=== PATIENT | male | born 1990 | race Caucasian/White ===

== ENCOUNTER 2016-11-27 20:02 | Emergency (ER) | payer OTHER ==
[2016-11-27] MEDS ORDERED: KETOROLAC 30 MG/ML VIAL (J1885) As Ordered ONE (20:46)
[2016-11-27] MEDS ORDERED: ONDANSETRON 4MG/2ML VIAL (J2405) As Ordered ONE (20:46)
[2016-11-27 20:59] LABS: BASO % 0.1 % (0.0-1.0); EOS # 0.2 K/mm3 (0.0-0.50); EOS % 1.9 % (0.0-3.0); LARGE UNSTAINED CELL # 0.1 K/mm3 (0.0-0.4); LARGE UNSTAINED CELL % 0.6 % (0.0-4.0); LYMPH # 0.6 K/mm3 (1.5-6.5); LYMPH % 4.6 % (24.0-44.0); MEAN CORPUSCULAR HEMOGLOBIN 31.4 pg (27.0-33.0); MEAN CORPUSCULAR HGB CONC 34.3 g/dl (32.0-36.5); MEAN CORPUSCULAR VOLUME 91.6 fl (80.0-96.0); MONO # 0.4 K/mm3 (0.0-0.8); MONO % 3.6 % (0.0-5.0); NEUTROPHILS # 9.6 K/mm3 (1.8-7.7); NEUTROPHILS % 89.2 % (36.0-66.0); PLATELET COUNT, AUTOMATED 208 k/mm3 (150-450); RED CELL DISTRIBUTION WIDTH 12.5 % (11.5-14.5); WHITE BLOOD COUNT 10.8 K/mm3 (4.0-10.0)
[2016-11-27 21:25] LABS: ALBUMIN 4.7 GM/DL (3.2-5.2); ALBUMIN/GLOBULIN RATIO 1.27 (1.00-1.93); ALKALINE PHOSPHATASE 81 U/L (45-117); ALT/SGPT 29 U/L (12-78); ANION GAP 9 MEQ/L (8-16); AST/SGOT 29 U/L (15-37); BILIRUBIN,DIRECT 0.2 MG/DL (0.0-0.2); BILIRUBIN,TOTAL 5.5 MG/DL (0.2-1.0); BLOOD UREA NITROGEN 19 MG/DL (7-18); CALCIUM LEVEL 9.3 MG/DL (8.5-10.1); CARBON DIOXIDE LEVEL 28 MEQ/L (21-32); CHLORIDE LEVEL 104 MEQ/L (98-107); CREATININE FOR GFR 1.22 MG/DL (0.70-1.30); GLOMERULAR FILTRATION RATE > 60.0 (>60); GLUCOSE, FASTING 119 MG/DL (70-105); POTASSIUM SERUM 3.9 MEQ/L (3.5-5.1); SODIUM LEVEL 141 MEQ/L (136-145); TOTAL PROTEIN 8.4 GM/DL (6.4-8.2)
--- NOTE | 2016-11-27 22:00 | EDDOCDS ---
Physician Documentation [facility] Name: Jed Bernardo Age: 26 yrs Sex: Male : 1990 Arrival Date: 11/27/2016 Time: 20:02 Bed I4 / M4 Private [facility] Disposition: 11/27/16 21:42 Discharged to Home/Self Care. Impression: Diarrhea, unspecified, Vomiting. - Condition is Stable. - Discharge Instructions: Food Choices to Help Relieve Diarrhea, Adult, Nausea and Vomiting. - Prescriptions for ZOFRAN ODT 4 mg Oral - dissolve 1 tablet by ORAL route 4 times per day As needed do not chew, do not swallow whole; 15 tablet. - Medication Reconciliation, Local Pharmacy Hours form. - [facility]; When: Call to arrange an appointment; Reason: Recheck today's complaints, Continuance of care. - Problem is new. - Symptoms have improved. Historical: - Allergies: SULFA (SULFONAMIDES) (Rash); - Home Meds: 1. multivitamin Oral cap 1 tablet daily - PMHx: none; - PSHx: ortho surgery; - Social history: Smoking status: Patient states was never smoker of tobacco. No barriers to communication noted, Speaks appropriately for age. - Family history: Not pertinent. - : The pt / caregiver states he / she is not on anticoagulants. Home medication list is obtained from the patient. - Exposure Risk Screening:: None identified. Vital Signs: 11/27 20:04 BP 135 / 76 RA Sitting (auto/lg); Pulse 98; Resp 18; Temp 99.0(T); Pulse Ox 100% on bnb R/A; Weight 79.38 kg / 175 lbs; Height 6 ft. (182.88 cm); Pain 1/10; 21:54 BP 126 / 69; Pulse 71; Resp 18; Temp 100.9(TE); Pulse Ox 99% on R/A; Pain 0/10; ar3 20:04 Body Mass Index 23.73 (79.38 kg, 182.88 cm) bnb MDM: 20:39 NS 0.9% 1000 ml IV at bolus once ordered. mo1 20:39 Ondansetron 4 mg IVP once ordered. mo1 20:39 ketorolac 30 mg IVP once ordered. mo1 20:39 Undress patient appropriately for examination ordered. mo1 20:40 Basic Metabolic Profile Ordered. EDMS 20:40 CBC with Diff Ordered. EDMS 20:40 Lipase Ordered. EDMS 20:40 Liver Profile Ordered. EDMS 20:40 Urinalysis Ordered. EDMS 20:41 NOTHING BY MOUTH+DIET ordered. EDMS 21:21 [facility] Payment Agreement was scanned into [employer] and attached to record. jp5 21:21 Financial registration complete. jp5 21:25 CBC with Diff Reviewed. mo1 21:25 Urinalysis Reviewed. mo1 21:26 Liver Profile Reviewed. mo1 21:27 Basic Metabolic Profile Reviewed. mo1 21:27 Lipase Reviewed. mo1 Administered Medications: 20:56 Drug: NS 0.9% 1000 ml [sodium chloride 0.9 % intravenous solution] Route: IV; Rate: jmb bolus; Site: left antecubital; 20:56 Drug: Ondansetron 4 mg [ondansetron HCl 2 mg/mL intravenous solution (2 mL)] Route: jmb IVP; Site: left antecubital; 20:56 Drug: ketorolac 30 mg [ketorolac 30 mg/mL (1 mL) injection solution (1 mL)] Route: IVP; jmb Site: left antecubital; Signatures: [facility] ED[facility] Cam RN RN rs3 Arian Ritter PA PA mo1 Jason Godinez RN RN jmb Jin Rocha jp5 The chart was reviewed and I authenticate all verbal orders and agree with the evaluation and treatment provided.Attachments: 21:21 [facility] Payment Agreement jp5 MTDD
--- NOTE | 2016-11-27 22:00 | EDDOCDS ---
Nurse's Notes [facility] Name: Jed Bernardo Age: 26 yrs Sex: Male : 1990 Arrival Date: 11/27/2016 Time: 20:02 Bed I4 / M4 Private MD: ZEESHAN ABDULLAHI Diagnosis: Diarrhea, unspecified;Vomiting Presentation: 11/27 20:07 Acuity: RYAN Level 3 rs3 20:10 Presenting complaint: Patient states: nausea, vomiting, diarrhea after eating out last rs3 night. Adult Sepsis Screening: The patient does not have new or worsening altered mentation. Patient's respiratory rate is less than 22. Systolic blood pressure is greater than 100. Patient has a qSOFA score of 0- Negative Sepsis Screen. Suicide/Homicide risk assessment- the patient denies having any suicidal and/or homicidal ideations and does not present with any other emotional, behavioral or mental health complaints. Status: Patient is not a vehicle service attendant or dependent. Transition of care: patient was not received from another setting of care. 20:10 Method Of Arrival: Walkin/Carried/Asstd rs3 Triage Assessment: 20:13 General: Appears in no apparent distress. Pain: Denies pain. Pt Declines HIV testing. rs3 Historical: - Allergies: SULFA (SULFONAMIDES) (Rash); - Home Meds: 1. multivitamin Oral cap 1 tablet daily - PMHx: none; - PSHx: ortho surgery; - Social history: Smoking status: Patient states was never smoker of tobacco. No barriers to communication noted, Speaks appropriately for age. - Family history: Not pertinent. - : The pt / caregiver states he / she is not on anticoagulants. Home medication list is obtained from the patient. - Exposure Risk Screening:: None identified. Screenin:57 Screening information is obtained from the patient. Fall risk: No risks identified. jmb Assistance ADL's: requires no assistance with activities of daily living. Abuse/DV Screen: The patient / caregiver reports he/she is: not in a situation that causes fear, pain or injury. Nutritional screening: No deficits noted. home support is adequate. 21:58 Advance Directives: Currently, there is no health care proxy. There is no active DNR jmb order. There is no living will. There is no Power of Tool Engineer. Assessment: 20:57 General: Appears in no apparent distress, Behavior is appropriate for age, cooperative. b Pain: Location: abdomen Pain currently is 1 out of 10 on a pain scale. Neurological: Level of Consciousness is awake, alert, obeys commands, Oriented to person, place, time, Sign Maintenance are equal bilaterally Speech is normal, Facial symmetry appears normal, Facial symmetry: tongue is midline. Cardiovascular: Capillary refill < 3 seconds Heart tones S1 S2 present Pulses are all present. Rhythm is regular. Respiratory: Airway is patent Respiratory effort is even, unlabored, Respiratory pattern is regular, symmetrical, Breath sounds are clear bilaterally. GI: Abdomen is non- distended Bowel sounds present X 4 quads. Abd is soft and non tender X 4 quads. Derm: Skin is pink, warm & dry. Musculoskeletal: Range of motion intact in all extremities. 21:41 General: Appears in no apparent distress, comfortable, Behavior is appropriate for age, jmb cooperative. Neurological: Level of Consciousness is awake, alert, obeys commands, Oriented to person, place, time. Respiratory: Airway is patent Respiratory effort is even, unlabored, Respiratory pattern is regular, symmetrical. 21:58 General: Patient instructed on discharge instructions. Patient asked if there were any b questions regarding discharge, patient stated no. IV discontinued per hospital policy. Patient signed discharge instructions. Patient discharged in stable condition. . Vital Signs: 20:04 BP 135 / 76 RA Sitting (auto/lg); Pulse 98; Resp 18; Temp 99.0(T); Pulse Ox 100% on b R/A; Weight 79.38 kg; Height 6 ft. (182.88 cm); Pain 1/10; 21:54 BP 126 / 69; Pulse 71; Resp 18; Temp 100.9(TE); Pulse Ox 99% on R/A; Pain 0/10; ar3 20:04 Body Mass Index 23.73 (79.38 kg, 182.88 cm) [facility] Vitals: 20:04 Log In Time: November 27, 2016 at 20:02. [facility] ED Course: 20:03 Patient visited by Mansi Godinez PCA. bnb 20:03 Patient moved to Waiting bnb 20:04 [facility] is Private Physician. bnb 20:06 Patient moved to Pre RCE bnb 20:08 Triage Initiated rs3 20:14 Patient moved to Triage 3 ttb 20:15 Patient moved to Pre RCE kc3 20:22 Patient moved to Triage 1 ar3 20:24 Arian Ritter PA is PHCP. mo1 20:24 Jatinder Barron DO is Attending Physician. mo1 20:36 Patient visited by Arian Ritter PA. mo1 20:43 Patient moved to I4 / M4 ttb 20:56 Basic Metabolic Profile Sent. jmb 20:56 CBC with Diff Sent. jmb 20:56 Lipase Sent. jmb 20:56 Liver Profile Sent. jmb 20:57 The patient / caregiver is instructed regarding the plan of care and ED course. jmb 20:57 Inserted saline lock: 20 gauge in left antecubital area and blood collected. The jmb patient tolerated the procedure well. Labs drawn. (by ED staff). Sent per order to lab. 20:58 Patient visited by Jason Godinez RN. jmb 21:21 [facility] Payment Agreement was scanned into [employer] and attached to record. jp5 21:41 Patient visited by Jason Godinez RN. jmb 21:42 [facility] is Referral Physician. mo1 21:54 Patient visited by Olga Houser PCA. ar3 21:58 Discontinued lock intact, bleeding controlled. No procedures done that require jmb assistance. Administered Medications: 20:56 Drug: NS 0.9% 1000 ml [sodium chloride 0.9 % intravenous solution] Route: IV; Rate: jmb bolus; Site: left antecubital; 20:56 Drug: Ondansetron 4 mg [ondansetron HCl 2 mg/mL intravenous solution (2 mL)] Route: jmb IVP; Site: left antecubital; 20:56 Drug: ketorolac 30 mg [ketorolac 30 mg/mL (1 mL) injection solution (1 mL)] Route: IVP; jmb Site: left antecubital; Order Results: Lab Order: Basic Metabolic Profile; SPEC'M 11/27/16 20:53 Test: GLUCOSE, FASTING; Value: 119; Range: 70-105; Abnormal: Above high normal; Units: MG/DL; Status: F Test: BLOOD UREA NITROGEN; Value: 19; Range: 7-18; Abnormal: Above high normal; Units: MG/DL; Status: F Test: CREATININE FOR GFR; Value: 1.22; Range: 0.70-1.30; Units: MG/DL; Status: F Test: GLOMERULAR FILTRATION RATE; Value: > 60.0; Range: >60; Status: F Test: SODIUM LEVEL; Value: 141; Range: 136-145; Units: MEQ/L; Status: F Test: POTASSIUM SERUM; Value: 3.9; Range: 3.5-5.1; Units: MEQ/L; Status: F Test: CHLORIDE LEVEL; Value: 104; Range: 98-107; Units: MEQ/L; Status: F Test: CARBON DIOXIDE LEVEL; Value: 28; Range: 21-32; Units: MEQ/L; Status: F Test: ANION GAP; Value: 9; Range: 8-16; Units: MEQ/L; Status: F Test: CALCIUM LEVEL; Value: 9.3; Range: 8.5-10.1; Units: MG/DL; Status: F Test Note: ; Units are mL/min/1.73 m2 Chronic Kidney Disease Staging per NKF: Stage I & II GFR >=60 Normal to Mildly Decreased Stage III GFR 30-59 Moderately Decreased Stage IV GFR 15-29 Severely Decreased Stage V GFR <15 Very Little GFR Left ESRD GFR <15 on BEHAVIORAL HEALTH CASE MANAGER Lab Order: CBC with Diff; SPEC'M 11/27/16 20:53 Test: WHITE BLOOD COUNT; Value: 10.8; Range: 4.0-10.0; Abnormal: Above high normal; Units: K/mm3; Status: F Test: RED BLOOD COUNT; Value: 5.47; Range: 4.30-6.10; Units: M/mm3; Status: F Test: HEMOGLOBIN; Value: 17.2; Range: 14.0-18.0; Units: g/dl; Status: F Test: HEMATOCRIT; Value: 50.1; Range: 42.0-52.0; Units: %; Status: F Test: MEAN CORPUSCULAR VOLUME; Value: 91.6; Range: 80.0-96.0; Units: fl; Status: F Test: MEAN CORPUSCULAR HEMOGLOBIN; Value: 31.4; Range: 27.0-33.0; Units: pg; Status: F Test: MEAN CORPUSCULAR HGB CONC; Value: 34.3; Range: 32.0-36.5; Units: g/dl; Status: F Test: RED CELL DISTRIBUTION WIDTH; Value: 12.5; Range: 11.5-14.5; Units: %; Status: F Test: PLATELET COUNT, AUTOMATED; Value: 208; Range: 150-450; Units: k/mm3; Status: F Test: NEUTROPHILS %; Value: 89.2; Range: 36.0-66.0; Abnormal: Above high normal; Units: %; Status: F Test: LYMPH %; Value: 4.6; Range: 24.0-44.0; Abnormal: Below low normal; Units: %; Status: F Test: MONO %; Value: 3.6; Range: 0.0-5.0; Units: %; Status: F Test: EOS %; Value: 1.9; Range: 0.0-3.0; Units: %; Status: F Test: BASO %; Value: 0.1; Range: 0.0-1.0; Units: %; Status: F Test: LARGE UNSTAINED CELL %; Value: 0.6; Range: 0.0-4.0; Units: %; Status: F Test: NEUTROPHILS #; Value: 9.6; Range: 1.8-7.7; Abnormal: Above high normal; Units: K/mm3; Status: F Test: LYMPH #; Value: 0.6; Range: 1.5-6.5; Abnormal: Below low normal; Units: K/mm3; Status: F Test: MONO #; Value: 0.4; Range: 0.0-0.8; Units: K/mm3; Status: F Test: EOS #; Value: 0.2; Range: 0.0-0.50; Units: K/mm3; Status: F Test: BASO #; Value: 0.0; Range: 0.0-0.2; Units: K/mm3; Status: F Test: LARGE UNSTAINED CELL #; Value: 0.1; Range: 0.0-0.4; Units: K/mm3; Status: F Lab Order: Lipase; SPEC'M 11/27/16 20:53 Test: LIPASE; Value: 73; Range: 73-393; Units: U/L; Status: F Lab Order: Liver Profile; SPEC'M 11/27/16 20:53 Test: AST/SGOT; Value: 29; Range: 15-37; Units: U/L; Status: F Test: ALT/SGPT; Value: 29; Range: 12-78; Units: U/L; Status: F Test: ALKALINE PHOSPHATASE; Value: 81; Range: 45-117; Units: U/L; Status: F Test: BILIRUBIN,TOTAL; Value: 5.5; Range: 0.2-1.0; Abnormal: Above high normal; Units: MG/DL; Status: F Test: BILIRUBIN,DIRECT; Value: 0.2; Range: 0.0-0.2; Units: MG/DL; Status: F Test: TOTAL PROTEIN; Value: 8.4; Range: 6.4-8.2; Abnormal: Above high normal; Units: GM/DL; Status: F Test: ALBUMIN; Value: 4.7; Range: 3.2-5.2; Units: GM/DL; Status: F Test: ALBUMIN/GLOBULIN RATIO; Value: 1.27; Range: 1.00-1.93; Status: F Lab Order: Urinalysis; [facility]'M 11/27/16 20:45 Test: APPEARANCE, URINE; Value: HAZY; Range: CLEAR; Status: F Test: COLOR, URINE; Value: YELLOW; Range: YELLOW; Status: F Test: PH,URINE; Value: 5.0; Range: 5.0-9.0; Units: UNITS; Status: F Test: SPECIFIC GRAVITY URINE AUTO; Value: 1.033; Range: 1.002-1.035; Status: F Test: PROTEIN, URINE AUTO; Value: 2+; Range: NEGATIVE; Abnormal: Above high normal; Units: mg/dL; Status: F Test: GLUCOSE, URINE (UA) AUTO; Value: NEGATIVE; Range: NEGATIVE; Units: mg/dL; Status: F Test: KETONE, URINE AUTO; Value: TRACE; Range: NEGATIVE; Abnormal: Above high normal; Units: mg/dL; Status: F Test: UROBILINOGEN, URINE AUTO; Value: 0.2; Range: 0.0-2.0; Units: mg/dL; Status: F Test: BILIRUBIN, URINE AUTO; Value: NEGATIVE; Range: NEGATIVE; Status: F Test: NITRITE, URINE AUTO; Value: NEGATIVE; Range: NEGATIVE; Status: F Test: LEUKOCYTE ESTERASE, URINE AUTO; Value: NEGATIVE; Range: NEGATIVE; Status: F Test: BLOOD, URINE BLOOD; Value: NEGATIVE; Range: NEGATIVE; Status: F Test: WBC, URINE AUTO; Value: 1; Range: 0-3; Units: /HPF; Status: F Test: RBC, URINE AUTO; Value: 2; Range: 0-3; Units: /HPF; Status: F Test: BACTERIA, URINE AUTO; Value: NEGATIVE; Range: NEGATIVE; Status: F Test: SQUAMOUS EPITHELIAL CELL UR AU; Value: 0; Range: 0-6; Units: /HPF; Status: F Test: MUCUS, URINE; Value: LARGE; Range: NEGATIVE; Status: F Test: HYALINE CAST, URINE AUTO; Value: 0; Range: 0-1; Units: /LPF; Status: F Outcome: 21:42 Discharge ordered by Provider. mo1 21:58 Discharge Assessment: Patient awake, alert and oriented x 3. No cognitive and/or jmb functional deficits noted. Patient verbalized understanding of disposition instructions. Patient awake and alert. obeys commands, Oriented to person, place and time. Patient verbalized understanding of disposition instructions. Patient has no functional deficits. patient administered narcotics - no. The following High Risk Discharge criteria are identified: None. Discharged to home ambulatory, with friend. Condition: stable Condition: improved. Discharge instructions given to patient, Instructed on discharge instructions, follow up and referral plans. medication usage, Demonstrated understanding of instructions, medications, Pt was receptive of discharge instructions/ teaching. Prescriptions given X 1. No special radiology studies were completed. Property sent home with patient. 22:00 Patient left the ED. b Signatures: Neena Dunn,RN RN rs3 Olga Houser, REGISTRATION REPRESENTATIVE REGISTRATION REPRESENTATIVE ar3 Kriss Thomas RN RN tiagob Arian Ritter PA PA mo1 Jason Godinez RN RN Jin Tomlinson jp5 Tiffany Hector RN RN kc3 Mansi Godinez, REGISTRATION REPRESENTATIVE REGISTRATION REPRESENTATIVE bnb Corrections: (The following items were deleted from the chart) 20:12 20:07 Presenting complaint: Patient states: L leg cramping on and off since Monday. rs3 Denies of swelling/redness. rs3 20:42 20:07 Acuity: RYAN Level 4 rs3 rs3 MTDD
--- NOTE | 2016-11-29 23:00 | EDDOCDS ---
Physician Documentation [facility] Name: Jed Bernardo Age: 26 yrs Sex: Male : 1990 Arrival Date: 11/27/2016 Time: 20:02 Bed I4 / M4 Private [facility] Disposition: 11/27/16 21:42 Discharged to Home/Self Care. Impression: Diarrhea, unspecified, Vomiting. - Condition is Stable. - Discharge Instructions: Food Choices to Help Relieve Diarrhea, Adult, Nausea and Vomiting. - Prescriptions for ZOFRAN ODT 4 mg Oral - dissolve 1 tablet by ORAL route 4 times per day As needed do not chew, do not swallow whole; 15 tablet. - Medication Reconciliation, Local Pharmacy Hours form. - [facility]; When: Call to arrange an appointment; Reason: Recheck today's complaints, Continuance of care. - Problem is new. - Symptoms have improved. Historical: - Allergies: SULFA (SULFONAMIDES) (Rash); - Home Meds: 1. multivitamin Oral cap 1 tablet daily - PMHx: none; - PSHx: ortho surgery; - Social history: Smoking status: Patient states was never smoker of tobacco. No barriers to communication noted, Speaks appropriately for age. - Family history: Not pertinent. - : The pt / caregiver states he / she is not on anticoagulants. Home medication list is obtained from the patient. - Exposure Risk Screening:: None identified. Vital Signs: 11/27 20:04 BP 135 / 76 RA Sitting (auto/lg); Pulse 98; Resp 18; Temp 99.0(T); Pulse Ox 100% on bnb R/A; Weight 79.38 kg / 175 lbs; Height 6 ft. (182.88 cm); Pain 1/10; 21:54 BP 126 / 69; Pulse 71; Resp 18; Temp 100.9(TE); Pulse Ox 99% on R/A; Pain 0/10; ar3 20:04 Body Mass Index 23.73 (79.38 kg, 182.88 cm) bnb MDM: 20:39 NS 0.9% 1000 ml IV at bolus once ordered. mo1 20:39 Ondansetron 4 mg IVP once ordered. mo1 20:39 ketorolac 30 mg IVP once ordered. mo1 20:39 Undress patient appropriately for examination ordered. mo1 20:40 Basic Metabolic Profile Ordered. EDMS 20:40 CBC with Diff Ordered. EDMS 20:40 Lipase Ordered. EDMS 20:40 Liver Profile Ordered. EDMS 20:40 Urinalysis Ordered. EDMS 20:41 NOTHING BY MOUTH+DIET ordered. EDMS 21:21 [facility] Payment Agreement was scanned into [employer] and attached to record. jp5 21:21 Financial registration complete. jp5 21:25 CBC with Diff Reviewed. mo1 21:25 Urinalysis Reviewed. mo1 21:26 Liver Profile Reviewed. mo1 21:27 Basic Metabolic Profile Reviewed. mo1 21:27 Lipase Reviewed. mo1 11/28 11:43 T-Sheet-- Draft Copy was scanned into [employer] and attached to record. gb Administered Medications: 11/27 20:56 Drug: NS 0.9% 1000 ml [sodium chloride 0.9 % intravenous solution] Route: IV; Rate: jmb bolus; Site: left antecubital; 20:56 Drug: Ondansetron 4 mg [ondansetron HCl 2 mg/mL intravenous solution (2 mL)] Route: jmb IVP; Site: left antecubital; 20:56 Drug: ketorolac 30 mg [ketorolac 30 mg/mL (1 mL) injection solution (1 mL)] Route: IVP; jmb Site: left antecubital; Signatures: Dispatcher [employer] EDMS Gladis Yen, Reg Reg Neena Ovalles RN RN rs3 Arian Ritter PA PA mo1 Jason Godinez RN RN jmb Price, Jennalee jp5 The chart was reviewed and I authenticate all verbal orders and agree with the evaluation and treatment provided.Attachments: 21:21 PENDING SALE TO [facility] Payment Agreement jp5 11/28 11:43 T-Sheet-- Draft Copy gb Chart Complete MTDD
--- NOTE | 2016-11-29 23:00 | EDDOCDS ---
Nurse's Notes [facility] Name: Jed Bernardo Age: 26 yrs Sex: Male : 1990 Arrival Date: 11/27/2016 Time: 20:02 Bed I4 / M4 Private MD: ZEESHAN ABDULLAHI Diagnosis: Diarrhea, unspecified;Vomiting Presentation: 11/27 20:07 Acuity: RYAN Level 3 rs3 20:10 Presenting complaint: Patient states: nausea, vomiting, diarrhea after eating out last rs3 night. Adult Sepsis Screening: The patient does not have new or worsening altered mentation. Patient's respiratory rate is less than 22. Systolic blood pressure is greater than 100. Patient has a qSOFA score of 0- Negative Sepsis Screen. Suicide/Homicide risk assessment- the patient denies having any suicidal and/or homicidal ideations and does not present with any other emotional, behavioral or mental health complaints. Status: Patient is not a telegraphic service dispatcher or dependent. Transition of care: patient was not received from another setting of care. 20:10 Method Of Arrival: Walkin/Carried/Asstd rs3 Triage Assessment: 20:13 General: Appears in no apparent distress. Pain: Denies pain. Pt Declines HIV testing. rs3 Historical: - Allergies: SULFA (SULFONAMIDES) (Rash); - Home Meds: 1. multivitamin Oral cap 1 tablet daily - PMHx: none; - PSHx: ortho surgery; - Social history: Smoking status: Patient states was never smoker of tobacco. No barriers to communication noted, Speaks appropriately for age. - Family history: Not pertinent. - : The pt / caregiver states he / she is not on anticoagulants. Home medication list is obtained from the patient. - Exposure Risk Screening:: None identified. Screenin:57 Screening information is obtained from the patient. Fall risk: No risks identified. jmb Assistance ADL's: requires no assistance with activities of daily living. Abuse/DV Screen: The patient / caregiver reports he/she is: not in a situation that causes fear, pain or injury. Nutritional screening: No deficits noted. home support is adequate. 21:58 Advance Directives: Currently, there is no health care proxy. There is no active DNR jmb order. There is no living will. There is no Power of Outbound Sales Agent. Assessment: 20:57 General: Appears in no apparent distress, Behavior is appropriate for age, cooperative. b Pain: Location: abdomen Pain currently is 1 out of 10 on a pain scale. Neurological: Level of Consciousness is awake, alert, obeys commands, Oriented to person, place, time, Lane Attendant are equal bilaterally Speech is normal, Facial symmetry appears normal, Facial symmetry: tongue is midline. Cardiovascular: Capillary refill < 3 seconds Heart tones S1 S2 present Pulses are all present. Rhythm is regular. Respiratory: Airway is patent Respiratory effort is even, unlabored, Respiratory pattern is regular, symmetrical, Breath sounds are clear bilaterally. GI: Abdomen is non- distended Bowel sounds present X 4 quads. Abd is soft and non tender X 4 quads. Derm: Skin is pink, warm & dry. Musculoskeletal: Range of motion intact in all extremities. 21:41 General: Appears in no apparent distress, comfortable, Behavior is appropriate for age, jmb cooperative. Neurological: Level of Consciousness is awake, alert, obeys commands, Oriented to person, place, time. Respiratory: Airway is patent Respiratory effort is even, unlabored, Respiratory pattern is regular, symmetrical. 21:58 General: Patient instructed on discharge instructions. Patient asked if there were any b questions regarding discharge, patient stated no. IV discontinued per hospital policy. Patient signed discharge instructions. Patient discharged in stable condition. . Vital Signs: 20:04 BP 135 / 76 RA Sitting (auto/lg); Pulse 98; Resp 18; Temp 99.0(T); Pulse Ox 100% on b R/A; Weight 79.38 kg; Height 6 ft. (182.88 cm); Pain 1/10; 21:54 BP 126 / 69; Pulse 71; Resp 18; Temp 100.9(TE); Pulse Ox 99% on R/A; Pain 0/10; ar3 20:04 Body Mass Index 23.73 (79.38 kg, 182.88 cm) [facility] Vitals: 20:04 Log In Time: November 27, 2016 at 20:02. [facility] ED Course: 20:03 Patient visited by Mansi Godinez PCA. bnb 20:03 Patient moved to Waiting bnb 20:04 [facility] is Private Physician. bnb 20:06 Patient moved to Pre RCE bnb 20:08 Triage Initiated rs3 20:14 Patient moved to Triage 3 ttb 20:15 Patient moved to Pre RCE kc3 20:22 Patient moved to Triage 1 ar3 20:24 Arian Ritter PA is PHCP. mo1 20:24 Jatinder Barron DO is Attending Physician. mo1 20:36 Patient visited by Arian Ritter PA. mo1 20:43 Patient moved to I4 / M4 ttb 20:56 Basic Metabolic Profile Sent. jmb 20:56 CBC with Diff Sent. jmb 20:56 Lipase Sent. jmb 20:56 Liver Profile Sent. jmb 20:57 The patient / caregiver is instructed regarding the plan of care and ED course. jmb 20:57 Inserted saline lock: 20 gauge in left antecubital area and blood collected. The jmb patient tolerated the procedure well. Labs drawn. (by ED staff). Sent per order to lab. 20:58 Patient visited by Jason Godinez RN. jmb 21:21 [facility] [place] Payment Agreement was scanned into [employer] and attached to record. jp5 21:41 Patient visited by Jason Godinze RN. jmb 21:42 [facility] is Referral Physician. mo1 21:54 Patient visited by Olga Houser PCA. ar3 21:58 Discontinued lock intact, bleeding controlled. No procedures done that require jmb assistance. 23:24 Patient name changed from Jed\S\\S\Az\S\ to Jed\S\Jeffrey\S\Az. EDMS 11/28 11:43 T-Sheet-- Draft Copy was scanned into [employer] and attached to record. gb Administered Medications: 11/27 20:56 Drug: NS 0.9% 1000 ml [sodium chloride 0.9 % intravenous solution] Route: IV; Rate: jmb bolus; Site: left antecubital; 20:56 Drug: Ondansetron 4 mg [ondansetron HCl 2 mg/mL intravenous solution (2 mL)] Route: jmb IVP; Site: left antecubital; 20:56 Drug: ketorolac 30 mg [ketorolac 30 mg/mL (1 mL) injection solution (1 mL)] Route: IVP; jmb Site: left antecubital; Order Results: Lab Order: Basic Metabolic Profile; SPEC'M 11/27/16 20:53 Test: GLUCOSE, FASTING; Value: 119; Range: 70-105; Abnormal: Above high normal; Units: MG/DL; Status: F Test: BLOOD UREA NITROGEN; Value: 19; Range: 7-18; Abnormal: Above high normal; Units: MG/DL; Status: F Test: CREATININE FOR GFR; Value: 1.22; Range: 0.70-1.30; Units: MG/DL; Status: F Test: GLOMERULAR FILTRATION RATE; Value: > 60.0; Range: >60; Status: F Test: SODIUM LEVEL; Value: 141; Range: 136-145; Units: MEQ/L; Status: F Test: POTASSIUM SERUM; Value: 3.9; Range: 3.5-5.1; Units: MEQ/L; Status: F Test: CHLORIDE LEVEL; Value: 104; Range: 98-107; Units: MEQ/L; Status: F Test: CARBON DIOXIDE LEVEL; Value: 28; Range: 21-32; Units: MEQ/L; Status: F Test: ANION GAP; Value: 9; Range: 8-16; Units: MEQ/L; Status: F Test: CALCIUM LEVEL; Value: 9.3; Range: 8.5-10.1; Units: MG/DL; Status: F Test Note: ; Units are mL/min/1.73 m2 Chronic Kidney Disease Staging per NKF: Stage I & II GFR >=60 Normal to Mildly Decreased Stage III GFR 30-59 Moderately Decreased Stage IV GFR 15-29 Severely Decreased Stage V GFR <15 Very Little GFR Left ESRD GFR <15 on SALESPERSON TERRAZZO TILES Lab Order: CBC with Diff; SPEC11/27/16 20:53 Test: WHITE BLOOD COUNT; Value: 10.8; Range: 4.0-10.0; Abnormal: Above high normal; Units: K/mm3; Status: F Test: RED BLOOD COUNT; Value: 5.47; Range: 4.30-6.10; Units: M/mm3; Status: F Test: HEMOGLOBIN; Value: 17.2; Range: 14.0-18.0; Units: g/dl; Status: F Test: HEMATOCRIT; Value: 50.1; Range: 42.0-52.0; Units: %; Status: F Test: MEAN CORPUSCULAR VOLUME; Value: 91.6; Range: 80.0-96.0; Units: fl; Status: F Test: MEAN CORPUSCULAR HEMOGLOBIN; Value: 31.4; Range: 27.0-33.0; Units: pg; Status: F Test: MEAN CORPUSCULAR HGB CONC; Value: 34.3; Range: 32.0-36.5; Units: g/dl; Status: F Test: RED CELL DISTRIBUTION WIDTH; Value: 12.5; Range: 11.5-14.5; Units: %; Status: F Test: PLATELET COUNT, AUTOMATED; Value: 208; Range: 150-450; Units: k/mm3; Status: F Test: NEUTROPHILS %; Value: 89.2; Range: 36.0-66.0; Abnormal: Above high normal; Units: %; Status: F Test: LYMPH %; Value: 4.6; Range: 24.0-44.0; Abnormal: Below low normal; Units: %; Status: F Test: MONO %; Value: 3.6; Range: 0.0-5.0; Units: %; Status: F Test: EOS %; Value: 1.9; Range: 0.0-3.0; Units: %; Status: F Test: BASO %; Value: 0.1; Range: 0.0-1.0; Units: %; Status: F Test: LARGE UNSTAINED CELL %; Value: 0.6; Range: 0.0-4.0; Units: %; Status: F Test: NEUTROPHILS #; Value: 9.6; Range: 1.8-7.7; Abnormal: Above high normal; Units: K/mm3; Status: F Test: LYMPH #; Value: 0.6; Range: 1.5-6.5; Abnormal: Below low normal; Units: K/mm3; Status: F Test: MONO #; Value: 0.4; Range: 0.0-0.8; Units: K/mm3; Status: F Test: EOS #; Value: 0.2; Range: 0.0-0.50; Units: K/mm3; Status: F Test: BASO #; Value: 0.0; Range: 0.0-0.2; Units: K/mm3; Status: F Test: LARGE UNSTAINED CELL #; Value: 0.1; Range: 0.0-0.4; Units: K/mm3; Status: F Lab Order: Lipase; [facility] 11/27/16 20:53 Test: LIPASE; Value: 73; Range: 73-393; Units: U/L; Status: F Lab Order: Liver Profile; [facility] 11/27/16 20:53 Test: AST/SGOT; Value: 29; Range: 15-37; Units: U/L; Status: F Test: ALT/SGPT; Value: 29; Range: 12-78; Units: U/L; Status: F Test: ALKALINE PHOSPHATASE; Value: 81; Range: 45-117; Units: U/L; Status: F Test: BILIRUBIN,TOTAL; Value: 5.5; Range: 0.2-1.0; Abnormal: Above high normal; Units: MG/DL; Status: F Test: BILIRUBIN,DIRECT; Value: 0.2; Range: 0.0-0.2; Units: MG/DL; Status: F Test: TOTAL PROTEIN; Value: 8.4; Range: 6.4-8.2; Abnormal: Above high normal; Units: GM/DL; Status: F Test: ALBUMIN; Value: 4.7; Range: 3.2-5.2; Units: GM/DL; Status: F Test: ALBUMIN/GLOBULIN RATIO; Value: 1.27; Range: 1.00-1.93; Status: F Lab Order: Urinalysis; [facility] 11/27/16 20:45 Test: APPEARANCE, URINE; Value: HAZY; Range: CLEAR; Status: F Test: COLOR, URINE; Value: YELLOW; Range: YELLOW; Status: F Test: PH,URINE; Value: 5.0; Range: 5.0-9.0; Units: UNITS; Status: F Test: SPECIFIC GRAVITY URINE AUTO; Value: 1.033; Range: 1.002-1.035; Status: F Test: PROTEIN, URINE AUTO; Value: 2+; Range: NEGATIVE; Abnormal: Above high normal; Units: mg/dL; Status: F Test: GLUCOSE, URINE (UA) AUTO; Value: NEGATIVE; Range: NEGATIVE; Units: mg/dL; Status: F Test: KETONE, URINE AUTO; Value: TRACE; Range: NEGATIVE; Abnormal: Above high normal; Units: mg/dL; Status: F Test: UROBILINOGEN, URINE AUTO; Value: 0.2; Range: 0.0-2.0; Units: mg/dL; Status: F Test: BILIRUBIN, URINE AUTO; Value: NEGATIVE; Range: NEGATIVE; Status: F Test: NITRITE, URINE AUTO; Value: NEGATIVE; Range: NEGATIVE; Status: F Test: LEUKOCYTE ESTERASE, URINE AUTO; Value: NEGATIVE; Range: NEGATIVE; Status: F Test: BLOOD, URINE BLOOD; Value: NEGATIVE; Range: NEGATIVE; Status: F Test: WBC, URINE AUTO; Value: 1; Range: 0-3; Units: /HPF; Status: F Test: RBC, URINE AUTO; Value: 2; Range: 0-3; Units: /HPF; Status: F Test: BACTERIA, URINE AUTO; Value: NEGATIVE; Range: NEGATIVE; Status: F Test: SQUAMOUS EPITHELIAL CELL UR AU; Value: 0; Range: 0-6; Units: /HPF; Status: F Test: MUCUS, URINE; Value: LARGE; Range: NEGATIVE; Status: F Test: HYALINE CAST, URINE AUTO; Value: 0; Range: 0-1; Units: /LPF; Status: F Outcome: 21:42 Discharge ordered by Provider. mo1 21:58 Discharge Assessment: Patient awake, alert and oriented x 3. No cognitive and/or jmb functional deficits noted. Patient verbalized understanding of disposition instructions. Patient awake and alert. obeys commands, Oriented to person, place and time. Patient verbalized understanding of disposition instructions. Patient has no functional deficits. patient administered narcotics - no. The following High Risk Discharge criteria are identified: None. Discharged to home ambulatory, with friend. Condition: stable Condition: improved. Discharge instructions given to patient, Instructed on discharge instructions, follow up and referral plans. medication usage, Demonstrated understanding of instructions, medications, Pt was receptive of discharge instructions/ teaching. Prescriptions given X 1. No special radiology studies were completed. Property sent home with patient. 22:00 Patient left the ED. jmb Signatures: Dispatcher [employer] EDMO Gladis Yen, Reg Reg Neena Ovalles RN RN rs3 Olga Houser, [employer]SEMBLER ar3 Kriss Thomas RN RN ttb Arian Ritter PA PA mo1 Jason Godinez,RN RN jerryb Jin Rocha jp5 Tiffany Hector,RN RN kc3 Mansi Godinez, [employer]SEMBLER bnb Corrections: (The following items were deleted from the chart) 20:12 20:07 Presenting complaint: Patient states: L leg cramping on and off since Monday. rs3 Denies of swelling/redness. rs3 20:42 20:07 Acuity: RYAN Level 4 rs3 rs3 Chart Complete MTDD
--- NOTE | 2016-11-29 23:00 | EDDOCDS ---
Physician Documentation [facility] Name: Jed Bernardo Age: 26 yrs Sex: Male : 1990 Arrival Date: 11/27/2016 Time: 20:02 Bed I4 / M4 [facility] Disposition: 11/27/16 21:42 Discharged to Home/Self Care. Impression: Diarrhea, unspecified, Vomiting. - Condition is Stable. - Discharge Instructions: Food Choices to Help Relieve Diarrhea, Adult, Nausea and Vomiting. - Prescriptions for ZOFRAN ODT 4 mg Oral - dissolve 1 tablet by ORAL route 4 times per day As needed do not chew, do not swallow whole; 15 tablet. - Medication Reconciliation, Local Pharmacy Hours form. - [facility]; When: Call to arrange an appointment; Reason: Recheck today's complaints, Continuance of care. - Problem is new. - Symptoms have improved. Historical: - Allergies: SULFA (SULFONAMIDES) (Rash); - Home Meds: 1. multivitamin Oral cap 1 tablet daily - PMHx: none; - PSHx: ortho surgery; - Social history: Smoking status: Patient states was never smoker of tobacco. No barriers to communication noted, Speaks appropriately for age. - Family history: Not pertinent. - : The pt / caregiver states he / she is not on anticoagulants. Home medication list is obtained from the patient. - Exposure Risk Screening:: None identified. Vital Signs: 11/27 20:04 BP 135 / 76 RA Sitting (auto/lg); Pulse 98; Resp 18; Temp 99.0(T); Pulse Ox 100% on bnb R/A; Weight 79.38 kg / 175 lbs; Height 6 ft. (182.88 cm); Pain 1/10; 21:54 BP 126 / 69; Pulse 71; Resp 18; Temp 100.9(TE); Pulse Ox 99% on R/A; Pain 0/10; ar3 20:04 Body Mass Index 23.73 (79.38 kg, 182.88 cm) bnb MDM: 20:39 NS 0.9% 1000 ml IV at bolus once ordered. mo1 20:39 Ondansetron 4 mg IVP once ordered. mo1 20:39 ketorolac 30 mg IVP once ordered. mo1 20:39 Undress patient appropriately for examination ordered. mo1 20:40 Basic Metabolic Profile Ordered. EDMS 20:40 CBC with Diff Ordered. EDMS 20:40 Lipase Ordered. EDMS 20:40 Liver Profile Ordered. EDMS 20:40 Urinalysis Ordered. EDMS 20:41 NOTHING BY MOUTH+DIET ordered. EDMS 21:21 [facility] Payment Agreement was scanned into [employer] and attached to record. jp5 21:21 Financial registration complete. jp5 21:25 CBC with Diff Reviewed. mo1 21:25 Urinalysis Reviewed. mo1 21:26 Liver Profile Reviewed. mo1 21:27 Basic Metabolic Profile Reviewed. mo1 21:27 Lipase Reviewed. mo1 11/28 11:43 T-Sheet-- Draft Copy was scanned into [employer] and attached to record. gb Administered Medications: 11/27 20:56 Drug: NS 0.9% 1000 ml [sodium chloride 0.9 % intravenous solution] Route: IV; Rate: jmb bolus; Site: left antecubital; 20:56 Drug: Ondansetron 4 mg [ondansetron HCl 2 mg/mL intravenous solution (2 mL)] Route: jmb IVP; Site: left antecubital; 20:56 Drug: ketorolac 30 mg [ketorolac 30 mg/mL (1 mL) injection solution (1 mL)] Route: IVP; jmb Site: left antecubital; Signatures: Dispatcher [employer] EDMS Gladis Yen, Reg Reg Neena Ovalles RN RN rs3 Arian Ritter PA PA mo1 Jason Godinez RN RN jmb Price, Jennalee jp5 The chart was reviewed and I authenticate all verbal orders and agree with the evaluation and treatment provided.Attachments: 21:21 [facility] Payment Agreement jp5 11/28 11:43 T-Sheet-- Draft Copy gb Chart Complete MTDD
== END 2016-11-27 22:00 | disposition home or self-care (01) ==
LOC: M ED 20:02
DX: A08.4 Viral intestinal infection, unspecified (principal); E86.0 Dehydration; R10.84 Generalized abdominal pain; R11.2 Nausea with vomiting, unspecified; R19.7 Diarrhea, unspecified; Z79.899 Other long term (current) drug therapy; Z88.2 Allergy status to sulfonamides
CPT/HCPCS: 36415; 80048; 80076; 81001; 83690; 85025; 96374; 96375; 99284; J1885; J2405

== ENCOUNTER 2016-11-29 04:12 | Emergency (ER) | payer OTHER ==
[2016-11-29 07:44] LABS: BASO % 0.2 % (0.0-1.0); EOS # 0.2 K/mm3 (0.0-0.50); EOS % 2.7 % (0.0-3.0); LARGE UNSTAINED CELL # 0.1 K/mm3 (0.0-0.4); LARGE UNSTAINED CELL % 1.6 % (0.0-4.0); LYMPH # 0.6 K/mm3 (1.5-6.5); LYMPH % 8.2 % (24.0-44.0); MEAN CORPUSCULAR HEMOGLOBIN 31.2 pg (27.0-33.0); MEAN CORPUSCULAR VOLUME 91.7 fl (80.0-96.0); MONO # 0.5 K/mm3 (0.0-0.8); MONO % 7.3 % (0.0-5.0); NEUTROPHILS # 5.7 K/mm3 (1.8-7.7); NEUTROPHILS % 80.1 % (36.0-66.0); PLATELET COUNT, AUTOMATED 148 k/mm3 (150-450); RED CELL DISTRIBUTION WIDTH 12.3 % (11.5-14.5); WHITE BLOOD COUNT 7.1 K/mm3 (4.0-10.0)
[2016-11-29 07:59] LABS: ALBUMIN/GLOBULIN RATIO 1.25 (1.00-1.93); ALKALINE PHOSPHATASE 80 U/L (45-117); ALT/SGPT 56 U/L (12-78); ANION GAP 7 MEQ/L (8-16); AST/SGOT 73 U/L (15-37); BILIRUBIN,DIRECT 0.2 MG/DL (0.0-0.2); BILIRUBIN,TOTAL 3.8 MG/DL (0.2-1.0); BLOOD UREA NITROGEN 15 MG/DL (7-18); CALCIUM LEVEL 8.6 MG/DL (8.5-10.1); CARBON DIOXIDE LEVEL 28 MEQ/L (21-32); CHLORIDE LEVEL 105 MEQ/L (98-107); CREATININE FOR GFR 0.97 MG/DL (0.70-1.30); GLOMERULAR FILTRATION RATE > 60.0 (>60); GLUCOSE, FASTING 91 MG/DL (70-105); POTASSIUM SERUM 3.8 MEQ/L (3.5-5.1); SODIUM LEVEL 140 MEQ/L (136-145); TOTAL PROTEIN 7.2 GM/DL (6.4-8.2)
--- NOTE | 2016-11-29 08:18 | ECGEPIP ---
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
--- NOTE | 2016-11-29 08:43 | EDDOCDS ---
Physician Documentation [facility] Name: Jed Bernardo Age: 26 yrs Sex: Male : 1990 Arrival Date: 11/29/2016 Time: 04:12 Bed 5 Private MD: Disposition: 11/29 08:28 Critical Care: Critical care not applicable. pc Disposition: 11/29/16 08:30 Discharged to Home/Self Care. Impression: Esophagitis - post-emesis, Gilbert syndrome. - Condition is Stable. - Discharge Instructions: Esophagitis. - Prescriptions for Protonix 40 mg Oral Tablet - take 1 tablet by ORAL route once daily; 30 tablet. - Medication Reconciliation, Local Pharmacy Hours form. - Follow up: [facility]; When: Tomorrow; Reason: Recheck today's complaints, Continuance of care. - Problem is new. - Symptoms have improved. HPI: 08:20 This 26 yrs old Male presents to ER via Walkin/Carried/Asstd with complaints pc of Chest Pressure. 08:21 The history is obtained from the patient. He had n/v/d 2 days [employer] and has had burning pc in his chest when he lays down since. He denies any SOB, fevers or chills. He has no other compalints. At their worst, the symptoms were mild. In the emergency department, the symptoms have resolved. The patient has not experienced similar symptoms in the past. The patient has been recently seen at the [facility], this week, for n/v/d. Historical: - Allergies: SULFA (SULFONAMIDES) (Rash); - Home Meds: 1. multivitamin Oral cap 1 tab daily 2. Aleve 220 mg Oral tab (Last dose: 11/29/2016 00:15) - PMHx: Gilbert's Syndrome; - PSHx: ortho surgery; - The history from nurses notes was reviewed: and elements of the historical information I have obtained differs from that reported to nursing. - Social history: Smoking status: Patient states was never smoker of tobacco. No barriers to communication noted, The patient speaks fluent Pakistani, Speaks appropriately for age. - Family history: Not pertinent. - : The pt / caregiver states he / she is not on anticoagulants. Home medication list is obtained from the patient. - Hospitalizations: : No recent hospitalization is reported. - Exposure Risk Screening:: None identified. - Immunization history:: All immunizations up-to-date. - Social history:: the patient is a non-smoker, the patient does not drink alcohol. ROS: 08:24 All systems are negative except as listed. pc Exam: 08:24 General Appearance: no acute distress, alert. pc 08:24 EENT: ears, nose and throat normal, pharynx normal, mucous membranes moist scleral icterus. 08:24 Neck: The exam reveals no acute abnormalities. ROM is normal and painless. No nuchal rigidity is noted.. 08:24 Respiratory: no respiratory distress, normal breath sounds. 08:24 CVS: regular pulse rate, regular rhythm, normal S1 and S2, no murmurs, strong peripheral pulses. 08:24 Abdomen: soft, non-tender, no organomegaly, normal bowel sounds. 08:24 Back: normal inspection. 08:24 Skin: skin color is normal, warm, dry. 08:24 Extremities: The extremities have a grossly normal appearance, are non-tender, without acute ROM abnormalities. 08:24 Neuro: oriented x 3, cranial nerves normal as tested, no motor deficits, no sensory deficits. 08:24 Psych: normal mood. Vital Signs: 04:19 BP 139 / 77; Pulse 77; Resp 16; Temp 99.9; Pulse Ox 100% ; Weight 79.38 kg / 175 lbs; ko2 Height 6 ft. (182.88 cm); Pain 4/10; 07:20 BP 120 / 73 (auto/); mcp 07:20 Pulse 70 MON; Pulse Ox 99% ; mcp 07:39 Temp 98.0(O); nb2 07:50 BP 120 / 76 (auto/); mcp 07:50 Pulse 70 MON; Pulse Ox 100% ; mcp 08:41 BP 118 / 71; Pulse 78; Resp 16; Temp 98.4(O); Pulse Ox 98% on R/A; Pain 0/10; mcp 04:19 Body Mass Index 23.73 (79.38 kg, 182.88 cm) ko2 07:39 Dr. Zavala notified nb2 MDM: 05:35 ECG WITH READING ER PHYS+CARDIAG ordered. EDMS 05:54 [facility] Payment Agreement was scanned into [employer] and attached to record. hs2 07:18 Financial registration complete. hs2 07:36 IV Saline Lock ordered. pc 07:37 Repeat Temperature - Oral: Inform provider of result ordered. pc 07:37 CBC with Diff Ordered. EDMS 07:37 MED Profile Ordered. EDMS 07:37 Liver Profile Ordered. EDMS 07:37 Lipase Ordered. EDMS 08:17 CBC with Diff Reviewed. pc 08:17 MED Profile Reviewed. pc 08:17 Liver Profile Reviewed. pc 08:17 Lipase Reviewed. pc 08:24 Differential Diagnosis: scleral icterus with known Gilbert's Syndrome; esophagitis due pc to recent emesis. Plan: review triaged EKG; labs, advice. Data reviewed: old medical records, vital signs, nurses notes, EKG(s), lab test results. Test interpretation: LAB - all labs as ordered have been reviewed, interpreted and considered in the overall management of the clinical presentation;. 08:24 Test interpretation: EKG. pc 08:28 The patient has been re-examined and re-evaluated. The clinical presentation did not pc require any ED treatment or interventions. Disposition: The historical points, examination findings, and any diagnostic results supporting the provided diagnosis, were discussed with the patient or legal guardian. The need for outpatient follow up with the provider listed on their discharge instructions was discussed. They were encouraged to return to [facility], or the nearest ED, if symptoms worsen/persist, or for any other questions/concerns. EC:04 Rate is 68 beats/min. Rhythm is regular, Normal Sinus Rhythm. QRS [place] is Normal. [place] pc interval is normal. QRS interval is normal. QT interval is normal. No Q waves. T waves are Normal. No ST changes noted. Clinical impression: Normal Sinus Rhythm. Signatures: Dispatcher [employer] Abilio York MD MD pc Peters, Mary, RN RN mcp Ogden, Kari, RN RN ko2 Amarilis Barron, Reg Reg hs2 The chart was reviewed and I authenticate all verbal orders and agree with the evaluation and treatment provided.Corrections: (The following items were deleted from the chart) 08:25 04:17 PMHx: none; ko2 pc Attachments: 05:54 PENDING S[facility] TO [facility] Payment Agreement hs2 MTDD
--- NOTE | 2016-11-29 08:44 | EDDOCDS ---
Nurse's Notes [facility] Name: Ashli Bernardo Age: 26 yrs Sex: Male : 1990 Arrival Date: 11/29/2016 Time: 04:12 Bed 5 Private MD: Diagnosis: [id number];Gilbert syndrome Presentation: 11/29 04:14 Presenting complaint: Patient states: chest pain, tightness and pressure as well as ko2 shortness [place] [id number] last night. Pt thought it was heartburn so he took some tylenol and the pain came back around 345 am. Aspirin was not taken prior to arrival. Suicide/Homicide risk assessment- the patient denies having any suicidal and/or homicidal ideations and does not present with any other emotional, behavioral or mental health complaints. 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 Transition of care: patient was not received from another setting of care. 04:14 Acuity: RYAN Level 3 ko2 04:14 Method Of Arrival: Walkin/Carried/Asstd ko2 04:21 Adult Sepsis Screening: The patient does not have new or worsening altered mentation. ko2 Patient's respiratory rate is less than 22. Systolic blood pressure is greater than 100. Patient has a qSOFA score of 0- Negative Sepsis Screen. Triage Assessment: 04:18 General: Appears in no apparent distress. Pain: Location: chest Pain currently is 4 out ko2 of 10 on a pain scale. Pain radiates to back Quality of pain is described as pressure. HIV screening NA for this visit Offered previously. Neurological: Level of Consciousness is awake, alert. Cardiovascular: Chest pain is described as most pain on inspiration . Respiratory: Airway is patent Respiratory effort is even, unlabored. Derm: Skin is normal, Skin temperature is. Musculoskeletal: Range of motion intact in all extremities. 08:43 Cardiovascular: Chest pain radiates Does not radiate. episodes are intermittent. mcp Historical: - Allergies: SULFA (SULFONAMIDES) (Rash); - Home Meds: 1. multivitamin Oral cap 1 tab daily 2. Aleve 220 mg Oral tab (Last dose: 11/29/2016 00:15) - PMHx: Gilbert's Syndrome; - PSHx: ortho surgery; - The history from nurses notes was reviewed: and elements of the historical information I have obtained differs from that reported to nursing. - Social history: Smoking status: Patient states was never smoker of tobacco. No barriers to communication noted, The patient speaks fluent Bangladeshi, Speaks appropriately for age. - Family history: Not pertinent. - : The pt / caregiver states he / she is not on anticoagulants. Home medication list is obtained from the patient. - Hospitalizations: : No recent hospitalization is reported. - Exposure Risk Screening:: None identified. - Immunization history:: All immunizations up-to-date. - Social history:: the patient is a non-smoker, the patient does not drink alcohol. Screenin:20 Screening information is obtained from the patient. Fall risk: No risks identified. ko2 Assistance ADL's: requires no assistance with activities of daily living. Abuse/DV Screen: The patient / caregiver reports he/she is: not in a situation that causes fear, pain or injury. Nutritional screening: No deficits noted. Advance Directives: Currently, there is no health care proxy. There is no active DNR order. There is no living will. 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 home support is adequate. Assessment: 07:27 General: Appears in no apparent distress, comfortable, Behavior is cooperative. Pain: mcp Location: chest Pain currently is 2 out of 10 on a pain scale. Quality of pain is described as pressure. Neurological: Level of Consciousness is awake, alert, Oriented to person, place, time, Moves all extremities. Speech is normal. Cardiovascular: Rhythm is sinus rhythm No ectopy. Chest pain is described as mild, quality is pressure, radiates Does not radiate. Respiratory: Airway is patent Respiratory effort is even, unlabored. Derm: Skin is pink, warm & dry. 08:41 General: Appears in no apparent distress, comfortable, Behavior is cooperative. Pain: mcp Denies pain. Neurological: No deficits noted. Respiratory: Airway is patent Respiratory effort is even, unlabored. Derm: Skin is pink, warm & dry. Vital Signs: 04:19 BP 139 / 77; Pulse 77; Resp 16; Temp 99.9; Pulse Ox 100% ; Weight 79.38 kg; Height 6 ko2 ft. (182.88 cm); Pain 4/10; 07:20 BP 120 / 73 (auto/); mcp 07:20 Pulse 70 MON; Pulse Ox 99% ; mcp 07:39 Temp 98.0(O); nb2 07:50 BP 120 / 76 (auto/); mcp 07:50 Pulse 70 MON; Pulse Ox 100% ; mcp 08:41 BP 118 / 71; Pulse 78; Resp 16; Temp 98.4(O); Pulse Ox 98% on R/A; Pain 0/10; mcp 04:19 Body Mass Index 23.73 (79.38 kg, 182.88 cm) ko2 07:39 Dr. Zavala notified nb2 Vitals: 04:19 Log In Time: November 29, 2016 at 04:12. ko2 ED Course: 04:13 Patient visited by Mateo Neal, Reg. pm4 04:13 Patient moved to Waiting pm4 04:16 Triage Initiated ko2 05:34 Patient moved to PD2 / 27 ko2 05:44 Patient moved to Waiting nn1 05:54 [facility] Payment Agreement was scanned into [employer] and attached to record. hs2 05:55 EKG done. (by ED staff). Reviewed by Lyssa Freeman DO. kb5 05:56 Patient visited by Jeancarlos Ma PCA. kb5 06:11 Miranda Bocanegra,RN is Primary Nurse. rw1 06:11 Patient moved to 5 rw1 06:27 Patient visited by Miranda Bocanegra,KAVYA. mv5 06:55 Inserted saline lock: 20 gauge in right antecubital area and blood collected. The nn1 patient tolerated the procedure well. 07:07 Abilio Zavala MD is Attending Physician. pc 07:12 Primary Nurse role handed off by Miranda Bocanegra,KAVYA mv5 07:18 Patient visited by Abilio Zavala MD. pc 07:28 Patient visited by Nena Stephens RN. mcp 07:37 Lipase Sent. mcp 07:37 Liver Profile Sent. mcp 07:37 MED Profile Sent. mcp 07:38 CBC with Diff Sent. mcp 07:39 Patient visited by Amirah Subramanian. nb2 08:30 Aide Lee [facility] is Referral Physician. pc 08:40 EKG-ADULT Returned. EDMS 08:42 The patient / caregiver is instructed regarding the plan of care and ED course. Cardiac mcp monitor on. Pulse ox on. NIBP on. 08:42 Discontinued lock intact, bleeding controlled, pressure dressing applied, No mcp redness/swelling at site. No procedures done that require assistance. Order Results: Lab Order: CBC with Diff; SPEC'M 11/29/16 06:53 Test: WHITE BLOOD COUNT; Value: 7.1; Range: 4.0-10.0; Units: K/mm3; Status: F Test: RED BLOOD COUNT; Value: 4.79; Range: 4.30-6.10; Units: M/mm3; Status: F Test: HEMOGLOBIN; Value: 14.9; Range: 14.0-18.0; Abnormal: Delta; Units: g/dl; Status: F Test: HEMATOCRIT; Value: 43.9; Range: 42.0-52.0; Units: %; Status: F Test: MEAN CORPUSCULAR VOLUME; Value: 91.7; Range: 80.0-96.0; Units: fl; Status: F Test: MEAN CORPUSCULAR HEMOGLOBIN; Value: 31.2; Range: 27.0-33.0; Units: pg; Status: F Test: MEAN CORPUSCULAR HGB CONC; Value: 34.0; Range: 32.0-36.5; Units: g/dl; Status: F Test: RED CELL DISTRIBUTION WIDTH; Value: 12.3; Range: 11.5-14.5; Units: %; Status: F Test: PLATELET COUNT, AUTOMATED; Value: 148; Range: 150-450; Abnormal: Below low normal; Units: k/mm3; Status: F Test: NEUTROPHILS %; Value: 80.1; Range: 36.0-66.0; Abnormal: Above high normal; Units: %; Status: F Test: LYMPH %; Value: 8.2; Range: 24.0-44.0; Abnormal: Below low normal; Units: %; Status: F Test: MONO %; Value: 7.3; Range: 0.0-5.0; Abnormal: Above high normal; Units: %; Status: F Test: EOS %; Value: 2.7; Range: 0.0-3.0; Units: %; Status: F Test: BASO %; Value: 0.2; Range: 0.0-1.0; Units: %; Status: F Test: LARGE UNSTAINED CELL %; Value: 1.6; Range: 0.0-4.0; Units: %; Status: F Test: NEUTROPHILS #; Value: 5.7; Range: 1.8-7.7; Units: K/mm3; Status: F Test: LYMPH #; Value: 0.6; Range: 1.5-6.5; Abnormal: Below low normal; Units: K/mm3; Status: F Test: MONO #; Value: 0.5; Range: 0.0-0.8; Units: K/mm3; Status: F Test: EOS #; Value: 0.2; Range: 0.0-0.50; Units: K/mm3; Status: F Test: BASO #; Value: 0.0; Range: 0.0-0.2; Units: K/mm3; Status: F Test: LARGE UNSTAINED CELL #; Value: 0.1; Range: 0.0-0.4; Units: K/mm3; Status: F Lab Order: MED Profile; [facility]' 11/29/16 06:53 Test: GLUCOSE, FASTING; Value: 91; Range: 70-105; Units: MG/DL; Status: F Test: BLOOD UREA NITROGEN; Value: 15; Range: 7-18; Units: MG/DL; Status: F Test: CREATININE FOR GFR; Value: 0.97; Range: 0.70-1.30; Units: MG/DL; Status: F Test: GLOMERULAR FILTRATION RATE; Value: > 60.0; Range: >60; Status: F Test: SODIUM LEVEL; Value: 140; Range: 136-145; Units: MEQ/L; Status: F Test: POTASSIUM SERUM; Value: 3.8; Range: 3.5-5.1; Units: MEQ/L; Status: F Test: CHLORIDE LEVEL; Value: 105; Range: 98-107; Units: MEQ/L; Status: F Test: CARBON DIOXIDE LEVEL; Value: 28; Range: 21-32; Units: MEQ/L; Status: F Test: ANION GAP; Value: 7; Range: 8-16; Abnormal: Below low normal; Units: MEQ/L; Status: F Test: CALCIUM LEVEL; Value: 8.6; Range: 8.5-10.1; Units: MG/DL; Status: F Test Note: ; Units are mL/min/1.73 m2 Chronic Kidney Disease Staging per NKF: Stage I & II GFR >=60 Normal to Mildly Decreased Stage III GFR 30-59 Moderately Decreased Stage IV GFR 15-29 Severely Decreased Stage V GFR <15 Very Little GFR Left ESRD GFR <15 on STAFF SCIENTIST Lab Order: Liver Profile; SPEC'M 11/29/16 06:53 Test: AST/SGOT; Value: 73; Range: 15-37; Abnormal: Above high normal; Units: U/L; Status: F Test: ALT/SGPT; Value: 56; Range: 12-78; Units: U/L; Status: F Test: ALKALINE PHOSPHATASE; Value: 80; Range: 45-117; Units: U/L; Status: F Test: BILIRUBIN,TOTAL; Value: 3.8; Range: 0.2-1.0; Abnormal: Above high normal; Units: MG/DL; Status: F Test: BILIRUBIN,DIRECT; Value: 0.2; Range: 0.0-0.2; Units: MG/DL; Status: F Test: TOTAL PROTEIN; Value: 7.2; Range: 6.4-8.2; Units: GM/DL; Status: F Test: ALBUMIN; Value: 4.0; Range: 3.2-5.2; Units: GM/DL; Status: F Test: ALBUMIN/GLOBULIN RATIO; Value: 1.25; Range: 1.00-1.93; Status: F Lab Order: Lipase; SPEC'M 11/29/16 06:53 Test: LIPASE; Value: 64; Range: 73-393; Abnormal: Below low normal; Units: U/L; Status: F Radiology Order: EKG-ADULT Test: EKG-ADULT REASON FOR EXAMINATION: Chest Pain; Stationary ECG Study; [facility] - ED; ; Test Date: 2016-11-29; Pat Name: ASHLI BERNARDO Department:; Room: -; Gender: M 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 pc 08:42 Discharge Assessment: patient administered narcotics - no. The following High Risk [facility] Discharge criteria are identified: None. Discharged to home ambulatory, with friend. Condition: stable. Discharge instructions given to patient, Instructed on discharge instructions, follow up and referral plans. medication usage, Demonstrated understanding of instructions, medications, Pt was receptive of discharge instructions/ teaching. Prescriptions given X 1. No special radiology studies were completed. Property sent home with patient. 08:43 Patient left the ED. [facility] Signatures: Dispatcher [employer] EDMS Abilio Zavala MD MD pc Peters, Mary RN RN [facility] Lc Bonilla LPN LPN rw1 Jeancarlos Ma, MARINA PORTER MARINA PORTER kb5 Bibi ColemanRN RN ko2 Yanique Sherman RN RN nn1 Amarilis Barron, Reg Reg hs2 Amirah Subramanian nb2 Mateo Neal, Reg Reg pm4 Miranda Bocanegra,RN RN mv5 Corrections: (The following items were deleted from the chart) 08:25 04:17 PMHx: none; ko2 pc MTDD
--- NOTE | 2016-12-01 09:44 | EDDOCDS ---
Physician Documentation [facility] Name: Jed Bernardo Age: 26 yrs Sex: Male : 1990 Arrival Date: 11/29/2016 Time: 04:12 Bed 5 Private MD: Disposition: 11/29 08:28 Critical Care: Critical care not applicable. pc Disposition: 11/29/16 08:30 Discharged to Home/Self Care. Impression: Esophagitis - post-emesis, Gilbert syndrome. - Condition is Stable. - Discharge Instructions: Esophagitis. - Prescriptions for Protonix 40 mg Oral Tablet - take 1 tablet by ORAL route once daily; 30 tablet. - Medication Reconciliation, Local Pharmacy Hours form. - Follow up: [facility]; When: Tomorrow; Reason: Recheck today's complaints, Continuance of care. - Problem is new. - Symptoms have improved. HPI: 08:20 This 26 yrs old Male presents to ER via Walkin/Carried/Asstd with complaints pc of Chest Pressure. 08:21 The history is obtained from the patient. 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 He denies any SOB, fevers or chills. He has no other compalints. At their worst, the symptoms were mild. In the emergency department, the symptoms have resolved. The patient has not experienced similar symptoms in the past. The patient has been recently seen at the [facility], this week, for n/v/d. Historical: - Allergies: SULFA (SULFONAMIDES) (Rash); - Home Meds: 1. multivitamin Oral cap 1 tab daily 2. Aleve 220 mg Oral tab (Last dose: 11/29/2016 00:15) - PMHx: Gilbert's Syndrome; - PSHx: ortho surgery; - The history from nurses notes was reviewed: and elements of the historical information I have obtained differs from that reported to nursing. - Social history: Smoking status: Patient states was never smoker of tobacco. No barriers to communication noted, The patient speaks fluent Spanish, Speaks appropriately for age. - Family history: Not pertinent. - : The pt / caregiver states he / she is not on anticoagulants. Home medication list is obtained from the patient. - Hospitalizations: : No recent hospitalization is reported. - Exposure Risk Screening:: None identified. - Immunization history:: All immunizations up-to-date. - Social history:: the patient is a non-smoker, the patient does not drink alcohol. ROS: 08:24 All systems are negative except as listed. pc Exam: 08:24 General Appearance: no acute distress, alert. pc 08:24 EENT: ears, nose and throat normal, pharynx normal, mucous membranes moist scleral icterus. 08:24 Neck: The exam reveals no acute abnormalities. ROM is normal and painless. No nuchal rigidity is noted.. 08:24 Respiratory: no respiratory distress, normal breath sounds. 08:24 CVS: regular pulse rate, regular rhythm, normal S1 and S2, no murmurs, strong peripheral pulses. 08:24 Abdomen: soft, non-tender, no organomegaly, normal bowel sounds. 08:24 Back: normal inspection. 08:24 Skin: skin color is normal, warm, dry. 08:24 Extremities: The extremities have a grossly normal appearance, are non-tender, without acute ROM abnormalities. 08:24 Neuro: oriented x 3, cranial nerves normal as tested, no motor deficits, no sensory deficits. 08:24 Psych: normal mood. Vital Signs: 04:19 BP 139 / 77; Pulse 77; Resp 16; Temp 99.9; Pulse Ox 100% ; Weight 79.38 kg / 175 lbs; ko2 Height 6 ft. (182.88 cm); Pain 4/10; 07:20 BP 120 / 73 (auto/); mcp 07:20 Pulse 70 MON; Pulse Ox 99% ; mcp 07:39 Temp 98.0(O); nb2 07:50 BP 120 / 76 (auto/); mcp 07:50 Pulse 70 MON; Pulse Ox 100% ; mcp 08:41 BP 118 / 71; Pulse 78; Resp 16; Temp 98.4(O); Pulse Ox 98% on R/A; Pain 0/10; mcp 04:19 Body Mass Index 23.73 (79.38 kg, 182.88 cm) ko2 07:39 Dr. Zavala notified nb2 MDM: 05:35 ECG WITH READING ER PHYS+CARDIAG ordered. EDMS 05:54 [facility] Payment Agreement was scanned into [employer] and attached to record. hs2 07:18 Financial registration complete. hs2 07:36 IV Saline Lock ordered. pc 07:37 Repeat Temperature - Oral: Inform provider of result ordered. pc 07:37 CBC with Diff Ordered. EDMS 07:37 MED Profile Ordered. EDMS 07:37 Liver Profile Ordered. EDMS 07:37 Lipase Ordered. EDMS 08:17 CBC with Diff Reviewed. pc 08:17 MED Profile Reviewed. pc 08:17 Liver Profile Reviewed. pc 08:17 Lipase Reviewed. pc 08:24 Differential Diagnosis: scleral icterus with known Gilbert's Syndrome; esophagitis due pc to recent emesis. Plan: review triaged EKG; labs, advice. Data reviewed: old medical records, vital signs, nurses notes, EKG(s), lab test results. Test interpretation: LAB - all labs as ordered have been reviewed, interpreted and considered in the overall management of the clinical presentation;. 08:24 Test interpretation: EKG. pc 08:28 The patient has been re-examined and re-evaluated. The clinical presentation did not pc require any ED treatment or interventions. Disposition: The historical points, examination findings, and any diagnostic results supporting the provided diagnosis, were discussed with the patient or legal guardian. The need for outpatient follow up with the provider listed on their discharge instructions was discussed. They were encouraged to return to [facility], or the nearest ED, if symptoms worsen/persist, or for any other questions/concerns. 15:45 ECG/EKG was scanned into [employer] and attached to record. EC:04 Rate is 68 beats/min. Rhythm is regular, Normal Sinus Rhythm. QRS [place] is Normal. NC pc interval is normal. QRS interval is normal. QT interval is normal. No Q waves. T waves are Normal. No ST changes noted. Clinical impression: Normal Sinus Rhythm. Signatures: Dispatcher [employer] EDIN Abilio Zavala MD MD pc Peters, Mary, RN RN [facility] Gladis Yen, Reg Reg gb Bibi Coleman RN RN ko2 Amarilis Barron, Reg Reg hs2 The chart was reviewed and I authenticate all verbal orders and agree with the evaluation and treatment provided.Corrections: (The following items were deleted from the chart) 08:25 04:17 PMHx: none; ko2 pc Attachments: 05:54 [facility] Payment Agreement hs2 15:45 ECG/EKG gb Chart Complete MTDD
--- NOTE | 2016-12-01 09:44 | EDDOCDS ---
Physician Documentation [facility] Name: Jed Bernardo Age: 26 yrs Sex: Male : 1990 Arrival Date: 11/29/2016 Time: 04:12 Bed 5 Private MD: Disposition: 11/29 08:28 Critical Care: Critical care not applicable. pc Disposition: 11/29/16 08:30 Discharged to Home/Self Care. Impression: Esophagitis - post-emesis, Gilbert syndrome. - Condition is Stable. - Discharge Instructions: Esophagitis. - Prescriptions for Protonix 40 mg Oral Tablet - take 1 tablet by ORAL route once daily; 30 tablet. - Medication Reconciliation, Local Pharmacy Hours form. - Follow up: Aide Lee [facility]; When: Tomorrow; Reason: Recheck today's complaints, Continuance of care. - Problem is new. - Symptoms have improved. HPI: 08:20 This 26 yrs old Male presents to ER via Walkin/Carried/Asstd with complaints pc of Chest Pressure. 08:21 The history is obtained from the patient. 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 He denies any SOB, fevers or chills. He has no other compalints. At their worst, the symptoms were mild. In the emergency department, the symptoms have resolved. The patient has not experienced similar symptoms in the past. The patient has been recently seen at the [facility], this week, for n/v/d. Historical: - Allergies: SULFA (SULFONAMIDES) (Rash); - Home Meds: 1. multivitamin Oral cap 1 tab daily 2. Aleve 220 mg Oral tab (Last dose: 11/29/2016 00:15) - PMHx: Gilbert's Syndrome; - PSHx: ortho surgery; - The history from nurses notes was reviewed: and elements of the historical information I have obtained differs from that reported to nursing. - Social history: Smoking status: Patient states was never smoker of tobacco. No barriers to communication noted, The patient speaks fluent Finnish, Speaks appropriately for age. - Family history: Not pertinent. - : The pt / caregiver states he / she is not on anticoagulants. Home medication list is obtained from the patient. - Hospitalizations: : No recent hospitalization is reported. - Exposure Risk Screening:: None identified. - Immunization history:: All immunizations up-to-date. - Social history:: the patient is a non-smoker, the patient does not drink alcohol. ROS: 08:24 All systems are negative except as listed. pc Exam: 08:24 General Appearance: no acute distress, alert. pc 08:24 EENT: ears, nose and throat normal, pharynx normal, mucous membranes moist scleral icterus. 08:24 Neck: The exam reveals no acute abnormalities. ROM is normal and painless. No nuchal rigidity is noted.. 08:24 Respiratory: no respiratory distress, normal breath sounds. 08:24 CVS: regular pulse rate, regular rhythm, normal S1 and S2, no murmurs, strong peripheral pulses. 08:24 Abdomen: soft, non-tender, no organomegaly, normal bowel sounds. 08:24 Back: normal inspection. 08:24 Skin: skin color is normal, warm, dry. 08:24 Extremities: The extremities have a grossly normal appearance, are non-tender, without acute ROM abnormalities. 08:24 Neuro: oriented x 3, cranial nerves normal as tested, no motor deficits, no sensory deficits. 08:24 Psych: normal mood. Vital Signs: 04:19 BP 139 / 77; Pulse 77; Resp 16; Temp 99.9; Pulse Ox 100% ; Weight 79.38 kg / 175 lbs; ko2 Height 6 ft. (182.88 cm); Pain 4/10; 07:20 BP 120 / 73 (auto/); mcp 07:20 Pulse 70 MON; Pulse Ox 99% ; mcp 07:39 Temp 98.0(O); nb2 07:50 BP 120 / 76 (auto/); mcp 07:50 Pulse 70 MON; Pulse Ox 100% ; mcp 08:41 BP 118 / 71; Pulse 78; Resp 16; Temp 98.4(O); Pulse Ox 98% on R/A; Pain 0/10; mcp 04:19 Body Mass Index 23.73 (79.38 kg, 182.88 cm) ko2 07:39 Dr. Zavala notified nb2 MDM: 05:35 ECG WITH READING ER PHYS+CARDIAG ordered. EDMS 05:54 [facility] Payment Agreement was scanned into [employer] and attached to record. hs2 07:18 Financial registration complete. hs2 07:36 IV Saline Lock ordered. pc 07:37 Repeat Temperature - Oral: Inform provider of result ordered. pc 07:37 CBC with Diff Ordered. EDMS 07:37 MED Profile Ordered. EDMS 07:37 Liver Profile Ordered. EDMS 07:37 Lipase Ordered. EDMS 08:17 CBC with Diff Reviewed. pc 08:17 MED Profile Reviewed. pc 08:17 Liver Profile Reviewed. pc 08:17 Lipase Reviewed. pc 08:24 Differential Diagnosis: scleral icterus with known Gilbert's Syndrome; esophagitis due pc to recent emesis. Plan: review triaged EKG; labs, advice. Data reviewed: old medical records, vital signs, nurses notes, EKG(s), lab test results. Test interpretation: LAB - all labs as ordered have been reviewed, interpreted and considered in the overall management of the clinical presentation;. 08:24 Test interpretation: EKG. pc 08:28 The patient has been re-examined and re-evaluated. The clinical presentation did not pc require any ED treatment or interventions. Disposition: The historical points, examination findings, and any diagnostic results supporting the provided diagnosis, were discussed with the patient or legal guardian. The need for outpatient follow up with the provider listed on their discharge instructions was discussed. They were encouraged to return to [facility], or the nearest ED, if symptoms worsen/persist, or for any other questions/concerns. 15:45 ECG/EKG was scanned into [employer] and attached to record. EC:04 Rate is 68 beats/min. Rhythm is regular, Normal Sinus Rhythm. QRS [place]kol is Normal. NE pc interval is normal. QRS interval is normal. QT interval is normal. No Q waves. T waves are Normal. No ST changes noted. Clinical impression: Normal Sinus Rhythm. Signatures: Dispatcher [employer] EDNJ Abilio Zavala MD MD pc Peters, Mary, RN RN [facility] Gladis Yen, Reg Reg gb Bibi Coleman RN RN ko2 Amarilis Barron, Reg Reg hs2 The chart was reviewed and I authenticate all verbal orders and agree with the evaluation and treatment provided.Corrections: (The following items were deleted from the chart) 08:25 04:17 PMHx: none; ko2 pc Attachments: 05:54 [facility] Payment Agreement hs2 15:45 ECG/EKG gb Chart Complete MTDD
--- NOTE | 2016-12-01 09:44 | EDDOCDS ---
Nurse's Notes [facility] Name: Ashli Bernardo Age: 26 yrs Sex: Male : 1990 Arrival Date: 11/29/2016 Time: 04:12 Bed 5 Private MD: Diagnosis: [id number];Gilbert syndrome Presentation: 11/29 04:14 Presenting complaint: Patient states: chest pain, tightness and pressure as well as ko2 shortness of breath [place] [id number] last night. Pt thought it was heartburn so he took some tylenol and the pain came back around 345 am. Aspirin was not taken prior to arrival. Suicide/Homicide risk assessment- the patient denies having any suicidal and/or homicidal ideations and does not present with any other emotional, behavioral or mental health complaints. 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 Transition of care: patient was not received from another setting of care. 04:14 Acuity: RYAN Level 3 ko2 04:14 Method Of Arrival: Walkin/Carried/Asstd ko2 04:21 Adult Sepsis Screening: The patient does not have new or worsening altered mentation. ko2 Patient's respiratory rate is less than 22. Systolic blood pressure is greater than 100. Patient has a qSOFA score of 0- Negative Sepsis Screen. Triage Assessment: 04:18 General: Appears in no apparent distress. Pain: Location: chest Pain currently is 4 out ko2 of 10 on a pain scale. Pain radiates to back Quality of pain is described as pressure. HIV screening NA for this visit Offered previously. Neurological: Level of Consciousness is awake, alert. Cardiovascular: Chest pain is described as most pain on inspiration . Respiratory: Airway is patent Respiratory effort is even, unlabored. Derm: Skin is normal, Skin temperature is. Musculoskeletal: Range of motion intact in all extremities. 08:43 Cardiovascular: Chest pain radiates Does not radiate. episodes are intermittent. mcp Historical: - Allergies: SULFA (SULFONAMIDES) (Rash); - Home Meds: 1. multivitamin Oral cap 1 tab daily 2. Aleve 220 mg Oral tab (Last dose: 11/29/2016 00:15) - PMHx: Gilbert's Syndrome; - PSHx: ortho surgery; - The history from nurses notes was reviewed: and elements of the historical information I have obtained differs from that reported to nursing. - Social history: Smoking status: Patient states was never smoker of tobacco. No barriers to communication noted, The patient speaks fluent Anguillan, Speaks appropriately for age. - Family history: Not pertinent. - : The pt / caregiver states he / she is not on anticoagulants. Home medication list is obtained from the patient. - Hospitalizations: : No recent hospitalization is reported. - Exposure Risk Screening:: None identified. - Immunization history:: All immunizations up-to-date. - Social history:: the patient is a non-smoker, the patient does not drink alcohol. Screenin:20 Screening information is obtained from the patient. Fall risk: No risks identified. ko2 Assistance ADL's: requires no assistance with activities of daily living. Abuse/DV Screen: The patient / caregiver reports he/she is: not in a situation that causes fear, pain or injury. Nutritional screening: No deficits noted. Advance Directives: Currently, there is no health care proxy. There is no active DNR order. There is no living will. There is no Power of Player Manager. home support is adequate. Assessment: 07:27 General: Appears in no apparent distress, comfortable, Behavior is cooperative. Pain: mcp Location: chest Pain currently is 2 out of 10 on a pain scale. Quality of pain is described as pressure. Neurological: Level of Consciousness is awake, alert, Oriented to person, place, time, Moves all extremities. Speech is normal. Cardiovascular: Rhythm is sinus rhythm No ectopy. Chest pain is described as mild, quality is pressure, radiates Does not radiate. Respiratory: Airway is patent Respiratory effort is even, unlabored. Derm: Skin is pink, warm & dry. 08:41 General: Appears in no apparent distress, comfortable, Behavior is cooperative. Pain: mcp Denies pain. Neurological: No deficits noted. Respiratory: Airway is patent Respiratory effort is even, unlabored. Derm: Skin is pink, warm & dry. Vital Signs: 04:19 BP 139 / 77; Pulse 77; Resp 16; Temp 99.9; Pulse Ox 100% ; Weight 79.38 kg; Height 6 ko2 ft. (182.88 cm); Pain 4/10; 07:20 BP 120 / 73 (auto/); mcp 07:20 Pulse 70 MON; Pulse Ox 99% ; mcp 07:39 Temp 98.0(O); nb2 07:50 BP 120 / 76 (auto/); mcp 07:50 Pulse 70 MON; Pulse Ox 100% ; mcp 08:41 BP 118 / 71; Pulse 78; Resp 16; Temp 98.4(O); Pulse Ox 98% on R/A; Pain 0/10; mcp 04:19 Body Mass Index 23.73 (79.38 kg, 182.88 cm) ko2 07:39 Dr. Zavala notified nb2 Vitals: 04:19 Log In Time: November 29, 2016 at 04:12. ko2 ED Course: 04:13 Patient visited by Mateo Neal, Reg. pm4 04:13 Patient moved to Waiting pm4 04:16 Triage Initiated ko2 05:34 Patient moved to PD2 / 27 ko2 05:44 Patient moved to Waiting nn1 05:54 PENDING SALE TO [facility] Payment Agreement was scanned into [employer] and attached to record. hs2 05:55 EKG done. (by ED staff). Reviewed by Lyssa Freeman DO. kb5 05:56 Patient visited by Jeancarlos Ma PCA. kb5 06:11 Miranda Bocanegra,RN is Primary Nurse. rw1 06:11 Patient moved to 5 rw1 06:27 Patient visited by Miranda Bocanegra,KAVYA. mv5 06:55 Inserted saline lock: 20 gauge in right antecubital area and blood collected. The nn1 patient tolerated the procedure well. 07:07 Abilio Zavala MD is Attending Physician. pc 07:12 Primary Nurse role handed off by Miranda Bocanegra,KAVYA mv5 07:18 Patient visited by Abilio Zavala MD. pc 07:28 Patient visited by Nena Stephens RN. mcp 07:37 Lipase Sent. mcp 07:37 Liver Profile Sent. mcp 07:37 MED Profile Sent. mcp 07:38 CBC with Diff Sent. mcp 07:39 Patient visited by Amirah Subramanian. nb2 08:30 Aide Lee [facility] is Referral Physician. pc 08:40 EKG-ADULT Returned. EDMS 08:42 The patient / caregiver is instructed regarding the plan of care and ED course. Cardiac mcp monitor on. Pulse ox on. NIBP on. 08:42 Discontinued lock intact, bleeding controlled, pressure dressing applied, No mcp redness/swelling at site. No procedures done that require assistance. 15:45 ECG/EKG was scanned into [employer] and attached to record. gb Order Results: Lab Order: CBC with Diff; SPEC'M 11/29/16 06:53 Test: WHITE BLOOD COUNT; Value: 7.1; Range: 4.0-10.0; Units: K/mm3; Status: F Test: RED BLOOD COUNT; Value: 4.79; Range: 4.30-6.10; Units: M/mm3; Status: F Test: HEMOGLOBIN; Value: 14.9; Range: 14.0-18.0; Abnormal: Delta; Units: g/dl; Status: F Test: HEMATOCRIT; Value: 43.9; Range: 42.0-52.0; Units: %; Status: F Test: MEAN CORPUSCULAR VOLUME; Value: 91.7; Range: 80.0-96.0; Units: fl; Status: F Test: MEAN CORPUSCULAR HEMOGLOBIN; Value: 31.2; Range: 27.0-33.0; Units: pg; Status: F Test: MEAN CORPUSCULAR HGB CONC; Value: 34.0; Range: 32.0-36.5; Units: g/dl; Status: F Test: RED CELL DISTRIBUTION WIDTH; Value: 12.3; Range: 11.5-14.5; Units: %; Status: F Test: PLATELET COUNT, AUTOMATED; Value: 148; Range: 150-450; Abnormal: Below low normal; Units: k/mm3; Status: F Test: NEUTROPHILS %; Value: 80.1; Range: 36.0-66.0; Abnormal: Above high normal; Units: %; Status: F Test: LYMPH %; Value: 8.2; Range: 24.0-44.0; Abnormal: Below low normal; Units: %; Status: F Test: MONO %; Value: 7.3; Range: 0.0-5.0; Abnormal: Above high normal; Units: %; Status: F Test: EOS %; Value: 2.7; Range: 0.0-3.0; Units: %; Status: F Test: BASO %; Value: 0.2; Range: 0.0-1.0; Units: %; Status: F Test: LARGE UNSTAINED CELL %; Value: 1.6; Range: 0.0-4.0; Units: %; Status: F Test: NEUTROPHILS #; Value: 5.7; Range: 1.8-7.7; Units: K/mm3; Status: F Test: LYMPH #; Value: 0.6; Range: 1.5-6.5; Abnormal: Below low normal; Units: K/mm3; Status: F Test: MONO #; Value: 0.5; Range: 0.0-0.8; Units: K/mm3; Status: F Test: EOS #; Value: 0.2; Range: 0.0-0.50; Units: K/mm3; Status: F Test: BASO #; Value: 0.0; Range: 0.0-0.2; Units: K/mm3; Status: F Test: LARGE UNSTAINED CELL #; Value: 0.1; Range: 0.0-0.4; Units: K/mm3; Status: F Lab Order: MED Profile; [facility]' 11/29/16 06:53 Test: GLUCOSE, FASTING; Value: 91; Range: 70-105; Units: MG/DL; Status: F Test: BLOOD UREA NITROGEN; Value: 15; Range: 7-18; Units: MG/DL; Status: F Test: CREATININE FOR GFR; Value: 0.97; Range: 0.70-1.30; Units: MG/DL; Status: F Test: GLOMERULAR FILTRATION RATE; Value: > 60.0; Range: >60; Status: F Test: SODIUM LEVEL; Value: 140; Range: 136-145; Units: MEQ/L; Status: F Test: POTASSIUM SERUM; Value: 3.8; Range: 3.5-5.1; Units: MEQ/L; Status: F Test: CHLORIDE LEVEL; Value: 105; Range: 98-107; Units: MEQ/L; Status: F Test: CARBON DIOXIDE LEVEL; Value: 28; Range: 21-32; Units: MEQ/L; Status: F Test: ANION GAP; Value: 7; Range: 8-16; Abnormal: Below low normal; Units: MEQ/L; Status: F Test: CALCIUM LEVEL; Value: 8.6; Range: 8.5-10.1; Units: MG/DL; Status: F Test Note: ; Units are mL/min/1.73 m2 Chronic Kidney Disease Staging per NKF: Stage I & II GFR >=60 Normal to Mildly Decreased Stage III GFR 30-59 Moderately Decreased Stage IV GFR 15-29 Severely Decreased Stage V GFR <15 Very Little GFR Left ESRD GFR <15 on MEDICAL PHOTOGRAPHER Lab Order: Liver Profile; SPEC'M 11/29/16 06:53 Test: AST/SGOT; Value: 73; Range: 15-37; Abnormal: Above high normal; Units: U/L; Status: F Test: ALT/SGPT; Value: 56; Range: 12-78; Units: U/L; Status: F Test: ALKALINE PHOSPHATASE; Value: 80; Range: 45-117; Units: U/L; Status: F Test: BILIRUBIN,TOTAL; Value: 3.8; Range: 0.2-1.0; Abnormal: Above high normal; Units: MG/DL; Status: F Test: BILIRUBIN,DIRECT; Value: 0.2; Range: 0.0-0.2; Units: MG/DL; Status: F Test: TOTAL PROTEIN; Value: 7.2; Range: 6.4-8.2; Units: GM/DL; Status: F Test: ALBUMIN; Value: 4.0; Range: 3.2-5.2; Units: GM/DL; Status: F Test: ALBUMIN/GLOBULIN RATIO; Value: 1.25; Range: 1.00-1.93; Status: F Lab Order: Lipase; SPEC'M 11/29/16 06:53 Test: LIPASE; Value: 64; Range: 73-393; Abnormal: Below low normal; Units: U/L; Status: F Radiology Order: EKG-ADULT Test: EKG-ADULT REASON FOR EXAMINATION: Chest Pain; Stationary ECG Study; [facility] - ED; ; Test Date: 2016-11-29; Pat Name: ASHLI BERNARDO Department:; Room: -; Gender: M 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 pc 08:42 Discharge Assessment: patient administered narcotics - no. The following High Risk [facility] Discharge criteria are identified: None. Discharged to home ambulatory, with friend. Condition: stable. Discharge instructions given to patient, Instructed on discharge instructions, follow up and referral plans. medication usage, Demonstrated understanding of instructions, medications, Pt was receptive of discharge instructions/ teaching. Prescriptions given X 1. No special radiology studies were completed. Property sent home with patient. 08:43 Patient left the ED. [facility] Signatures: Dispatcher [employer] EDMS Abilio Zavala MD MD pc Nena Stephens RN RN [facility] Gladis Yen, Reg Reg gb Lc Bonilla,MARINE CARGO SURVEYOR MARINE CARGO SURVEYOR rw1 Jeancarlos Ma, INVENTORY TECHNICIAN INVENTORY TECHNICIAN kb5 Bibi ColemanRN RN ko2 Yanique ShermanRN RN nn1 Amarilis Barron, Reg Reg hs2 Amirah Subramanian nb2 Mateo Neal, Reg Reg pm4 Miranda Bocanegra,RN RN mv5 Corrections: (The following items were deleted from the chart) 08:25 04:17 PMHx: none; ko2 Chart Complete MTDD
== END 2016-11-29 08:43 | disposition home or self-care (01) ==
LOC: M ED 04:12
DX: K20.8 Other esophagitis (principal); E80.4 Gilbert syndrome; Z88.2 Allergy status to sulfonamides